=== PATIENT | male | born 1995 | race Caucasian/White ===

== ENCOUNTER 2016-08-07 02:01 | Emergency (ER) | payer MEDICAID, OTHER ==
[~2016-08-07] VITALS: Ht 190.5 cm; Wt 63.6 kg
[~2016-08-07 02:01] MED LIST: CEFD300C3 PO; DIVA500T15 PO; DIVA500T7 PO; FAMO-119 PO; FLT4413; LORA10TA7; LORA1TAB59 PO; NAPR500T PO; OMEP20CA12; PALI9TAB4; PRD20T PO; SUCR1ORA5 PO; TPR25T PO; TRIA10.8 NSEACH
--- NOTE | 2016-08-07 03:04 | ED Psychosocial ---
General Chief Complaint: Psych/Social Disorder Stated Complaint: ALTERED MENTAL STATUS Nursing Triage Note: Pt presents to ED by EMS with unknown complaint, pt will not report any concerns to EMS or ED staff. Source: patient, EMS Exam Limitations: clinical condition History of Present Illness Time seen by provider: 01:56 Initial Comments This 21-year-old young man is brought to the emergency room by EMS from a local convenience store. He had been present in the convenient store for more than 24 hours. He asked the filing clerk to contact EMS for him. Upon arrival he cannot or will not tell us why he requested EMS. He reports he has not been taking his medications. He will not clearly provide an answer regarding whether or not he has a place to stay tonight. He has made a few fleeting comments suggesting hyper congregation delusions and possibly hallucinations. He refuses to allow a blood specimen. He did provide a urine sample. This patient is well- known to the extensive psychiatric history. He has well established with [facility]. Allergies and Home Medications Allergies Coded Allergies: Penicillins (Unverified Allergy, Unknown, 02/03/15) quetiapine (Unverified Allergy, Unknown, 02/03/15) Home Medications No Active Prescriptions or Reported Meds Constitutional: no symptoms reported EENTM: no symptoms reported Respiratory: no symptoms reported Cardiovascular: no symptoms reported Gastrointestinal: no symptoms reported Genitourinary: no symptoms reported Musculoskeletal: no symptoms reported Skin: no symptoms reported Psychiatric/Neurological: See HPI Past Kfnwsdo-Mhpxlj-Iwcpyk Hx Patient Social History Alcohol Use: Denies Use Recreational Drug Use: No Drug of Choice: "Marleen" occas Smoking Status: Current Everyday Smoker Type Used: Cigarettes Recent Foreign Travel: No Contact w/Someone Who Travel: No Recent Infectious Disease Expo: No Recent Hopitalizations: No Physical Abuse Screen: No Sexual Abuse: No Immunizations Up To Date Tetanus Booster (TDap): Less than 5yrs Seasonal Allergies Seasonal Allergies: No Surgeries HX Surgeries: No Respiratory Hx Respiratory Disorders: Yes Respiratory Disorders: Asthma Cardiovascular Hx Cardiac Disorders: No Neurological Hx Neurological Disorders: Yes Neurological Disorders: Seizure Disorder Reproductive System Hx Reproductive Disorders: No Sexually Transmitted Disease: No Genitourinary Hx Genitourinary Disorders: No Gastrointestinal Hx Gastrointestinal Disorders: No Musculoskeletal Hx Musculoskeletal Disorders: No Endocrine Hx Endocrine Disorders: No HEENT HX ENT Disorders: No Cancer Hx Cancer: No Psychosocial Hx Psychiatric Problems: Yes (MANIPULATIVE BEHAVIOR) Behavioral Health Disorders: Personality Disorder, Schizophrenia Integumentary HX Skin/Integumentary Disorder: No Blood Transfusions Hx Blood Disorders: No Family Medical History Significant Family History: No Pertinent Family Hx Physical Exam Vital Signs Vital Sign - Last 12Hours 08/07/16 02:02 Temp 98.4 Pulse 111 Resp 18 B/P 124/66 Pulse Ox 100 Capillary Refill : Less Than 3 Seconds General Appearance: WD/WN mild distress HEENT: PERRL/EOMI normal ENT inspection pharynx normal Neck: normal inspection Respiratory: lungs clear normal breath sounds no respiratory distress no accessory muscle use Cardiovascular: regular rate, rhythm no edema no murmur Gastrointestinal: non tender soft Extremities: normal inspection no pedal edema Neurologic/Psychiatric: highballer II-XII nml as tested no motor/sensory deficits alert other (appears mildly agitated. Appears to be having hallucinations that he is responding to. Has grandiose hyperreligious delusions.) Appearance/Memory: disheveled Behavior/Eye Contact: avoids eye contact refused to answer uncooperative Thoughts/Hallucinations: other (apparent hallucinations) Skin: normal color warm/dry Progress/Results/Core Measures Results/Orders Lab Results Laboratory Tests Test 08/07/16 02:10 Range/Units Ur Tricyclic Antidepressants Screen NEGATIVE NEGATIVE Urine Amphetamines Screen NEGATIVE NEGATIVE Urine Barbiturates Screen NEGATIVE NEGATIVE Urine Benzodiazepines Screen NEGATIVE NEGATIVE Urine Cannabinoids Screen NEGATIVE NEGATIVE Urine Cocaine Screen NEGATIVE NEGATIVE Urine Methadone Screen NEGATIVE NEGATIVE Urine Methamphetamines Screen NEGATIVE NEGATIVE Urine Opiates Screen NEGATIVE NEGATIVE Urine Oxycodone Screen NEGATIVE NEGATIVE Urine Phencyclidine Screen NEGATIVE NEGATIVE Urine Propoxyphene Screen NEGATIVE NEGATIVE My Orders Orders-JOHNNY VAZQUEZ MD Drug Screen Stat (Urine) (08/07/16 02:17) Vital Signs/I&O Vital Sign - Last 12Hours 08/07/16 08/07/16 02:02 03:09 Temp 98.4 Pulse 111 99 Resp 18 20 B/P 124/66 Pulse Ox 100 98 Blood Pressure Mean: 85 Progress Note : Progress Note Case was reviewed with the [facility] screener. She verified the patient has an apartment. She recommended having police take him back to his apartment. She will arrange for welfare checks and follow-up with his employment evaluator/case manager. Departure Impression Impression: Primary Impression: Paranoia Additional Impression: Acute psychosis Disposition: Condition: Unchanged Departure-Patient Inst. Decision time for Depature: 03:03 Referrals: NO,LOCAL PHYSICIAN (PCP/Family) Primary Care Physician Patient Instructions: NO INSTRUCTIONS GIVEN Add. Discharge Instructions: Follow-up with your employment evaluator/case manager and your behavioral health provider soon as possible. Return to care if symptoms worsen. All discharge instructions reviewed with patient and/or family. Voiced understanding. Scripts No Active Prescriptions or Reported Meds JOHNNY VAZQUEZ MD Aug 07, 2016 03:04
[2016-08-07 03:09] VITALS: BP 124/60
== END 2016-08-07 03:09 | disposition home or self-care (01) ==
LOC: EDUNIT# 02:01 → ER 02:03
DX: F22 Delusional disorders (principal); F23 Brief psychotic disorder; G40.909 Epilepsy, unspecified, not intractable, without status epilepticus; F20.9 Schizophrenia, unspecified; F17.210 Nicotine dependence, cigarettes, uncomplicated
CPT/HCPCS: 80306; 99284

== ENCOUNTER 2016-09-21 03:40 | Emergency (ER) | payer MEDICAID ==
[~2016-09-21] VITALS: Ht 188 cm; Wt 63.5 kg
[2016-09-21] MEDS ORDERED: OLANZapine 5 MG ODT (ZyPREXA ZYDIS) PO ONE (04:00)
[2016-09-21 04:04] VITALS: BP 0/0
--- NOTE | 2016-09-21 04:12 | ED Psychosocial ---
General Chief Complaint: Psych/Social Disorder Stated Complaint: MENTAL HEALTH ISSUES Source: EMS, old records Exam Limitations: other (PT UNABLE TO GIVE ANY RELEVANT INFORMATION) History of Present Illness Time seen by provider: 03:40 Initial Comments PT ARRIVES VIA EMS THEY REPORT THAT PT WAS FOUND BY [place] [employer] WALKING DOWN THE STREET ACTING BIZARRE, SO POLICE CALLED EMS PT WITH EXTENSIVE PSYCH ISSUES, OTC DRUG ABUSE AND EXTREMELY MANIPULATIVE BEHAVIOR AND LABILE BEHAVIOR--PT CAN BE CALM ONE MINUTE AND VERY EXPLOSIVE THE NEXT MANY VISITS HAVE BEEN TO AVOID [facility] PT ALSO WITH LONG HISTORY OF EXTREME [id number] STATES HE HAS NOT BEEN TAKING HIS MEDICATION THIS IS THE ONLY INFORMATION THAT IS OBTAINABLE FROM PT--REST OF HIS VOCALIZATION IS COMPLETELY NON-SENSICAL TALK, COMPLETE JIBBERISH / NON-WORDS, CURSING, SINGING/CHANTING, ETC. ANABAPTISM FIXATION, BARACK OBAMA FIXATION THIS BEHAVIOR IS ALL NORMAL FOR PT, JUST APPEARS MORE MANIC AND TO A MORE HEIGHTENED DEGREE THAN HIS USUAL PT HAS ESTHETICIAN MAKEUP ARTIST THROUGH [facility] Allergies and Home Medications Allergies Coded Allergies: Penicillins (Unverified Allergy, Unknown, 02/03/15) quetiapine (Unverified Allergy, Unknown, 02/03/15) Home Medications No Active Prescriptions or Reported Meds Constitutional: other (UNABLE TO OBTAIN ANY INFORMATION FROM PT) Psychiatric/Neurological: See HPI Past Tycdrte-Rspynv-Beokgt Hx Patient Social History Alcohol Use: Denies Use Recreational Drug Use: Yes (OTC COLD MEDICATION ABUSE) Drug of Choice: "Marleen" occas Smoking Status: Current Everyday Smoker Type Used: Cigarettes Recent Foreign Travel: No Contact w/Someone Who Travel: No Recent Hopitalizations: No Immunizations Up To Date Tetanus Booster (TDap): Less than 5yrs Seasonal Allergies Seasonal Allergies: No Surgeries HX Surgeries: No Respiratory Hx Respiratory Disorders: Yes Respiratory Disorders: Asthma Cardiovascular Hx Cardiac Disorders: No Neurological Hx Neurological Disorders: Yes Neurological Disorders: Seizure Disorder Reproductive System Hx Reproductive Disorders: No Sexually Transmitted Disease: No Genitourinary Hx Genitourinary Disorders: No Gastrointestinal Hx Gastrointestinal Disorders: No Musculoskeletal Hx Musculoskeletal Disorders: No Endocrine Hx Endocrine Disorders: No HEENT HX ENT Disorders: No Cancer Hx Cancer: No Psychosocial Hx Psychiatric Problems: Yes (MANIPULATIVE BEHAVIOR; OTC MEDICATION ABUSE) Behavioral Health Disorders: Personality Disorder, Schizophrenia Integumentary HX Skin/Integumentary Disorder: No Blood Transfusions Hx Blood Disorders: No Family Medical History Significant Family History: No Pertinent Family Hx Physical Exam Vital Signs Capillary Refill : General Appearance: no apparent distress other (FILTHY, UNKMEPT, VERY MALODOROUS. ACTING) thin Respiratory: normal breath sounds no respiratory distress Cardiovascular: regular rate, rhythm Neurologic/Psychiatric: no motor/sensory deficits alert Appearance/Memory: disheveled impaired insight Behavior/Eye Contact: threatening eye contact increased rate of speech uncooperative Thoughts/Hallucinations: delusions flight of ideas grandiose incoherent obsessive paranoid persecution church Skin: normal color warm/dry Progress/Results/Core Measures Results/Orders My Orders Orders-PEREZ MASSEY DO Olanzapine Orally Dissolve Tab (Zyprexa (09/21/16 04:00) Alcohol (09/21/16 03:50) Cbc With Automated Diff (09/21/16 03:50) Comprehensive Metabolic Panel (09/21/16 03:50) Drug Screen Stat (Urine) (09/21/16 03:50) Ua Culture If Indicated (09/21/16 03:50) Acetaminophen (09/21/16 03:55) Salicylate (09/21/16 03:55) Progress Note : Progress Note 0345--SAVE LINE CONTACTED BY RN, SPOKE WITH MICHI FROM [facility]. HE WILL CONTACT ESTHETICIAN MAKEUP ARTIST PT REFUSED TO GIVE URINE SAMPLE OR HAVE LAB DRAWN PT REFUSED TO TAKE ORAL ZYPREXA PT THEN PROMPTLY BOLTED FROM ER AT APPROXIMATELY 0404--[place] [employer] WERE CONTACTED ESTHE[employer]ICIAN MAKEUP ARTIST [employer] TESTER ARRIVED AT 0420--INFORMED HER OF PT'S CONDITION AND NEED FOR TREATMENT. SHE WOULD CONTACT PT'S ESTHETICIAN MAKEUP ARTIST IN THE MORNING. Departure Impression Impression: Primary Impression: Left against medical advice Additional Impressions: Schizophrenia Non compliance with medical treatment Chronic psychosis Hx of drug abuse Disposition: 07 AGAINST MEDICAL ADVICE Condition: Against Medical Advice Departure-Patient Inst. Referrals: NO,LOCAL PHYSICIAN (PCP/Family) Primary Care Physician Scripts No Active Prescriptions or Reported Meds PEREZ MASSEY DO Sep 21, 2016 04:12
== END 2016-09-21 04:04 | disposition left against medical advice (07) ==
LOC: EDUNIT# 03:42 → ER 03:43
DX: F20.9 Schizophrenia, unspecified (principal); F29 Unspecified psychosis not due to a substance or known physiological condition; F17.210 Nicotine dependence, cigarettes, uncomplicated; Z91.14 Patient's other noncompliance with medication regimen; Z53.29 Procedure and treatment not carried out because of patient's decision for other reasons
CPT/HCPCS: 99284